=== PATIENT | female | born 1970 | race African-American/Black ===

== ENCOUNTER → 2016-06-24 23:59 | Emergency (ER) | payer BC ==
[~2016-06-24 23:59] MED LIST: ARTHROTEC 751 TAB.E2 PO; BENICAR HCT 40-1 TA1 PO; KCL PO
== END | disposition left against medical advice (07) ==
LOC: CED 23:59
DX: Z53.21 Procedure and treatment not carried out due to patient leaving prior to being seen by health care provider (principal)